=== PATIENT | female | born 2000 | race Caucasian/White ===

== ENCOUNTER 2018-01-19 02:07 | Emergency (ER) | payer BC ==
[~2018-01-19] VITALS: Ht 154.9 cm; Wt 45.4 kg
[2018-01-19 02:14] VITALS: TEMP 36.5; Ht 154.9 cm; Wt 45.4 kg
[2018-01-19] MEDS ORDERED: ONDANSETRON INJ 2 MG/ML 2 ML VIAL IV STA (02:43)
[2018-01-19] MEDS ORDERED: SODIUM CHLORIDE 0.9% 1000ML 1,000 ML IV ONE (02:45)
[2018-01-19] MEDS ORDERED: KETOROLAC TROMETHAMINE 15 MG/ML VIAL IV ONE (02:45)
[2018-01-19 03:13] LABS: BASO % 0.2 %; BASO ABS # 0.04 K/uL (0-0.2); EOS % 0.2 %; EOS ABS # 0.03 K/uL (0-0.5); HEMATOCRIT 42.3 % (37-47); HEMOGLOBIN 14.5 g/dL (12.0-16.0); IG# 0.05 K/uL (0.00-0.02); LYMPH % 8.7 %; LYMPH ABS # 1.49 K/uL (1.2-3.4); MEAN CELL VOLUME 88.7 fL (80-100); MEAN CORPUSCULAR HEMOGLOBIN 30.4 pg (25-34); MEAN CORPUSCULAR HGB CONC 34.3 g/dl (32-36); MEAN PLATELET VOLUME 10.9 fL (7.4-10.4); MONO % 4.4 %; MONO ABS # 0.76 K/uL (0.11-0.59); NEUT % 86.2 %; NEUT ABS # 14.81 K/uL (1.4-6.5); PLATELET COUNT 279 K/uL (130-400); RED CELL DISTRIBUTION WIDTH SD 41.9 fL (36.4-46.3); WHITE BLOOD COUNT 17.18 K/uL (4.8-10.8)
[2018-01-19 03:27] LABS: ALBUMIN 4.6 gm/dl (3.4-5.0); CALCIUM 10.2 mg/dl (8.5-10.1); CREATININE 0.76 mg/dl (0.60-1.20); POTASSIUM 3.6 mmol/L (3.5-5.1)
[2018-01-19 03:29] LABS: TOTAL PROTEIN 9.3 gm/dl (6.4-8.2)
[2018-01-19] MEDS ORDERED: OPTIRAY 320 IV PRN (03:30)
[2018-01-19] MEDS ORDERED: ESCI1TAB10 PO (05:11)
[2018-01-19] MEDS ORDERED: CEFTRIAXONE SOD INJ 1 GM ADDVIAL IV STA (06:14)
[2018-01-19] MEDS ORDERED: CEFD300C2 PO (06:23)
[2018-01-19 07:01] VITALS: BP 112/71; PULSE 60; O2SAT 98
--- NOTE | 2018-01-19 07:45 | DIAGNOSTIC IMAGING REPORT ---
ABDOMEN AND PELVIS CT WITH IV AND ORAL CONTRAST CT DOSE: 257.68 mGy.cm HISTORY: Acute right-sided flank pain with nausea and leukocytosis Right side back pain. Nausea. WBC TECHNIQUE: Multiaxial CT images of the abdomen and pelvis were performed following the use of intravenous and oral contrast. A dose lowering technique was utilized adhering to the principles of ALARA. COMPARISON STUDY: None. FINDINGS: Clear lung bases. No pneumatosis or pneumoperitoneum. Imaged inferior cardiac chambers are unremarkable. Liver, gallbladder, spleen, pancreas and adrenal glands are within normal limits. 13 mm circumscribed low attenuating lesion of the superior pole left kidney suggests renal cyst. Opacification of the collecting systems and ureters secondary to delayed phase of imaging. No renal calculi or obstructive uropathy. Ureters appear unremarkable. Mild circumferential wall thickening of the urinary bladder with partial distention. Uterus and adnexa are unremarkable. No aortic aneurysm or bulky adenopathy. There is no bowel obstruction. The appendix appears normal within the abdominal right lower quadrant. Areas of suggested wall thickening throughout the colon likely secondary to partial distention. No ascites. Soft tissues are unremarkable. The bones appear intact. Mild levoscoliosis of the lumbar spine. IMPRESSION: 1. No acute intra-abdominal or intrapelvic abnormality identified. 2. Normal appendix. Electronically signed by: Fidel Cárdenas M.D. 01/19/2018 7:44 AM Dictated Date/Time: 01/19/2018 7:30 AM
--- NOTE | 2018-01-20 02:57 | EMERGENCY ROOM VISIT NOTE ---
History First contact with patient: 02:24 Chief Complaint: BACK PAIN Stated Complaint: BACK PAIN,NAUSEA,DEHYDRATION History of Present Illness The patient is a 17 year old female who presents to the Emergency Room with complaints of right-sided back pain radiating into her lower abdomen on the right-hand side. She is nauseated without vomiting. She has not been eating or drinking well. The patient's symptoms have been going on for the past 1-2 days. She does not report fever or chills. She does have some urgency with using the bathroom. She denies chance of and considerations of usually healthy. No previous abdominal surgeries. She rates her current discomfort a 5/10. Review of Systems More than 10 systems were reviewed and otherwise negative with the exception of history of present illness. Past Medical/Surgical History No chronic medical disease Family History No pertinent family history Social History Smoking Status: Never Smoker Occupation Status: [employer] student Current/Historical Medications Scheduled Cefdinir (Omnicef), 300 MG PO Q12H Escitalopram Oxalate (Lexapro), 20 MG PO DAILY Physical Exam Vital Signs Date Time Temp Pulse Resp B/P (MAP) Pulse Ox O2 Delivery O2 Flow Rate FiO2 01/19/18 07:01 60 16 112/71 98 01/19/18 05:40 85 18 110/84 Room Air 01/19/18 04:43 65 18 108/74 100 Room Air 01/19/18 02:14 36.5 63 18 121/83 98 Room Air Physical Exam VITALS: Vitals are noted on the nurse's note and reviewed by myself. Vital signs stable. GENERAL: Well-developed, well-nourished, white female, who is in no acute distress and resting comfortably. Patient is cooperative with the examination. HEAD: Normocephalic atraumatic. HEART: Regular rate and rhythm without murmurs gallops or rubs. LUNGS: Clear to auscultation bilaterally without wheezes, rales or rhonchi. No retractions or accessory muscle use. ABDOMEN: Positive normal bowel sounds x 4. Soft with positive right lower quadrant tenderness on palpation. No CVA tenderness. MUSCULOSKELETAL: No muscle atrophy, erythema, or edema noted. Full range of motion in all extremities. Medical Decision & Procedures ER Provider Diagnostic Interpretation: ABDOMEN AND PELVIS CT WITH IV AND ORAL CONTRAST CT DOSE: 257.68 mGy.cm HISTORY: Acute right-sided flank pain with nausea and leukocytosis Right side back pain. Nausea. WBC TECHNIQUE: Multiaxial CT images of the abdomen and pelvis were performed following the use of intravenous and oral contrast. A dose lowering technique was utilized adhering to the principles of ALARA. COMPARISON STUDY: None. FINDINGS: Clear lung bases. No pneumatosis or pneumoperitoneum. Imaged inferior cardiac chambers are unremarkable. Liver, gallbladder, spleen, pancreas and adrenal glands are within normal limits. 13 mm circumscribed low attenuating lesion of the superior pole left kidney suggests renal cyst. Opacification of the collecting systems and ureters secondary to delayed phase of imaging. No renal calculi or obstructive uropathy. Ureters appear unremarkable. Mild circumferential wall thickening of the urinary bladder with partial distention. Uterus and adnexa are unremarkable. No aortic aneurysm or bulky adenopathy. There is no bowel obstruction. The appendix appears normal within the abdominal right lower quadrant. Areas of suggested wall thickening throughout the colon likely secondary to partial distention. No ascites. Soft tissues are unremarkable. The bones appear intact. Mild levoscoliosis of the lumbar spine. IMPRESSION: 1. No acute intra-abdominal or intrapelvic abnormality identified. 2. Normal appendix. Laboratory Results 01/19/18 03:00 Red Blood Count 4.77, Mean Corpuscular Volume 88.7, Mean Corpuscular Hemoglobin 30.4, Mean Corpuscular Hemoglobin Concent 34.3, Mean Platelet Volume 10.9, Neutrophils (%) (Auto) 86.2, Lymphocytes (%) (Auto) 8.7, Monocytes (%) (Auto) 4.4, Eosinophils (%) (Auto) 0.2, Basophils (%) (Auto) 0.2, Neutrophils # (Auto) 14.81, Lymphocytes # (Auto) 1.49, Monocytes # (Auto) 0.76, Eosinophils # (Auto) 0.03, Basophils # (Auto) 0.04 01/19/18 03:00 Test 01/19/18 02:55 01/19/18 03:00 Urine Color YELLOW Urine Appearance TURBID (CLEAR) Urine pH >= 9.0 (4.5-7.5) Urine Specific [place] 1.022 (1.000-1.030) Urine Protein NEG (NEG) Urine Glucose (UA) NEG (NEG) Urine Ketones NEG (NEG) Urine Occult Blood 2+ (NEG) Urine Nitrite NEG (NEG) Urine Bilirubin NEG (NEG) Urine Urobilinogen NEG (NEG) Urine Leukocyte Esterase MODERATE (NEG) Urine WBC (Auto) >30 /hpf (0-5) Urine RBC (Auto) 10-30 /hpf (0-4) Urine Hyaline Casts (Auto) 0 /lpf (0-5) Urine Epithelial Cells (Auto) 5-10 /lpf (0-5) Urine Bacteria (Auto) 4+ (NEG) Urine Mucus PRESENT (NONE PRSENT) Urine Test NEG (NEG) White Blood Count 17.18 K/uL (4.8-10.8) Red Blood Count 4.77 M/uL (4.2-5.4) Hemoglobin 14.5 g/dL (12.0-16.0) Hematocrit 42.3 % (37-47) Mean Corpuscular Volume 88.7 fL (80-100) Mean Corpuscular Hemoglobin 30.4 pg (25-34) Mean Corpuscular Hemoglobin Concent 34.3 g/dl (32-36) Platelet Count 279 K/uL (130-400) Mean Platelet Volume 10.9 fL (7.4-10.4) Neutrophils (%) (Auto) 86.2 % Lymphocytes (%) (Auto) 8.7 % Monocytes (%) (Auto) 4.4 % Eosinophils (%) (Auto) 0.2 % Basophils (%) (Auto) 0.2 % Neutrophils # (Auto) 14.81 K/uL (1.4-6.5) Lymphocytes # (Auto) 1.49 K/uL (1.2-3.4) Monocytes # (Auto) 0.76 K/uL (0.11-0.59) Eosinophils # (Auto) 0.03 K/uL (0-0.5) Basophils # (Auto) 0.04 K/uL (0-0.2) RDW Standard Deviation 41.9 fL (36.4-46.3) RDW Coefficient of Variation 13.0 % (11.5-14.5) Immature Granulocyte % (Auto) 0.3 % Immature Granulocyte # (Auto) 0.05 K/uL (0.00-0.02) Anion Gap 6.0 mmol/L (3-11) Est Creatinine Clear Calc Drug Dose 85.3 ml/min Estimated GFR () 131.8 Estimated GFR (Non- 113.7 BUN/Creatinine Ratio 16.1 (10-20) Calcium Level 10.2 mg/dl (8.5-10.1) Total Bilirubin 0.4 mg/dl (0.2-1) Aspartate Amino Transf (AST/SGOT) 21 U/L (15-37) Alanine Aminotransferase (ALT/SGPT) 27 U/L (12-78) Alkaline Phosphatase 94 U/L (45-117) Total Protein 9.3 gm/dl (6.4-8.2) Albumin 4.6 gm/dl (3.4-5.0) Globulin 4.7 gm/dl (2.5-4.0) Albumin/Globulin Ratio 1.0 (0.9-2) Lipase 172 U/L (73-393) Medications Administered Medications (Trade) Dose Ordered Sig/Dolores Route Start Time Stop Time Status Last Admin Dose Admin Sodium Chloride 1,000 ml @ 999 mls/hr Q1H1M ONCE IV 01/19/18 02:45 01/19/18 03:45 DC 01/19/18 03:15 999 MLS/HR Ondansetron HCl (Zofran Inj) 4 mg NOW STAT IV 01/19/18 02:43 01/19/18 02:45 DC 01/19/18 03:16 4 MG Ketorolac Tromethamine (Toradol Inj) 15 mg NOW ONCE IV 01/19/18 02:45 01/19/18 02:46 DC 01/19/18 03:16 15 MG Ceftriaxone Sodium (Rocephin Inj) 1 gm NOW STAT IV 01/19/18 06:14 01/19/18 06:15 DC 01/19/18 06:30 1 GM ED Course Physical exam and history were performed. Nursing notes, EMR, and Medication List were personally reviewed. Patient appears to have right lower quadrant tenderness on examination. She is also complaining of some right-sided low back pain. The patient may also have some urine symptoms. IV access was established and labs were obtained. Urine was collected. I did elect to perform CT scan with IV and oral contrast. The patient was hydrated and medicated as above. Patient's blood work is as above and was reviewed. She does not have a significantly elevated white blood cell count, gross anemia, bandemia, or significant electrolyte imbalance. Lipase and transaminases are not diagnostic. The patient's urine is highly suggestive of UTI with culture pending. CT scan is as above and does not show intra-abdominal process. On reevaluation the patient continued to be very comfortable, did not have worsening of her symptoms. Clinically I suspect that she has an acute pyelonephritis as the likely cause of both her symptoms and foul appearing urine. The patient was given IV Rocephin here and will be given Omnicef by mouth pending culture. The patient is to follow with [facility] in the next 2 days for recheck. She was otherwise invited back to the ER with any new, worsening, or concerning symptoms. The chart was completed utilizing [employer] Speech Voice Recognition Software. Grammatical errors, random word insertions, pronoun errors, and incomplete sentences are an occasional consequence of this system due to software limitations, ambient noise, and hardware issues. Any formal questions or concerns about the content, text, or information contained within the body of this dictation should be directly addressed to the provider for clarification. . Medical Decision Differential diagnosis: Etiologies such as appendicitis, diverticulitis, PUD, biliary pathology, UTI, pancreatitis, obstruction, mesenteric ischemia, aortic pathology, infections, inflammatory bowel disease, renal colic, as well as others were entertained. Impression Primary Impression: Pyelonephritis Departure Information Dispostion Home / Self-Care Condition GOOD Prescriptions Cefdinir (OMNICEF) 300 Mg Cap 300 MG PO Q12H for 10 Days, #20 CAP Prov: Luciano Hernandez PA-C 01/19/18 Referrals [facility] (PCP) Forms HOME CARE DOCUMENTATION FORM, IMPORTANT VISIT INFORMATION Patient Instructions My [facility] Additional Instructions You were seen and evaluated today on an emergency basis only. This is not a substitute for, or an effort to provide, complete comprehensive medical care. It is not possible to recognize and treat all injuries or illnesses in a single emergency department visit. For this reason it is recommended that you followup with [facility] this week for recheck of your condition. Take Omnicef 300 mg twice daily for the next 10 days. For baseline pain relief you may alternate ibuprofen and acetaminophen every 4 hours for pain control. Take 400 mg ibuprofen (Advil) and then 4 hours later take 650 mg acetaminophen (Tylenol). Do not take more than 3000 mg acetaminophen in a single day. You are welcome to return to the emergency department anytime with new, worsening, or concerning symptoms.
--- NOTE | 2018-01-21 13:13 | Pharmacy Progress Note ---
ED Pharmacist Culture FollowUp Date of Service: Jan 21, 2018. Patient was sent home with a prescription for cefdinir, which should cover the E. coli growing from the patient's urine culture, as evidenced by reported sensitivity to ceftriaxone.
== END 2018-01-19 07:02 | disposition home or self-care (01) ==
LOC: C.EDB 02:09
DX: N10 Acute pyelonephritis (principal)